=== PATIENT | female | born 1990 | race Caucasian/White ===

== ENCOUNTER → 2017-05-25 | Outpatient (REF) | LOC: WSOH 11:14 | DX: Z00.00 Encounter for general adult medical examination without abnormal findings (principal) ==

== ENCOUNTER → 2023-06-22 | Outpatient (CLI) | payer BC, OTHER | LOC: COL.RAD 08:00 | DX: S73.191A Other sprain of right hip, initial encounter (principal); M25.851 Other specified joint disorders, right hip | CPT/HCPCS: G0260; J0665; J3301 ==